=== PATIENT | male | born 1990 | race Caucasian/White ===

== ENCOUNTER 2016-12-28 00:03 | Emergency (ER) | payer BC ==
[~2016-12-28] VITALS: Ht 172.7 cm; Wt 8.2 kg
[~2016-12-28 00:03] MED LIST: AMOXIL500 MG PO; AUGMENTIN 875 M1 TAB PO; FIORICET 325 MG1 TAB PO; FLONASE0.05 MG/AC NS; MOTRIN800 MG PO; NKHM; NORCO 10-325 T1 EACH PO; ZYRTEC10 M2 PO
[2016-12-28 00:24] LABS: BASO # 0.1 10*3/uL (0.0-0.1); BASO % 1.1 % (0.0-1.0); EOS # 0.2 10*3/uL (0.0-0.4); EOS % 1.5 % (1.0-4.0); HEMATOCRIT 44.4 % (42.0-52.0); HEMOGLOBIN 15.1 g/dl (14.0-18.0); IG # 0.1 10*3/uL (0.0-0.1); LYMPH % 25.9 % (27.0-41.0); MEAN CELL VOLUME 91.5 fl (80.0-94.0); MEAN CORPUSCULAR HGB 31.1 pg (27.0-31.0); MEAN PLATELET VOLUME 8.3 fl (9.6-12.3); MONO # 0.6 10*3/uL (0.1-1.0); NEUT # 7.6 10*3/uL (2.3-7.9); NEUT % 65.8 % (47.0-73.0); PLATELET COUNT AUTOMATED 250 10*3/uL (130-400); RED BLOOD COUNT 4.85 10*6/uL (4.50-5.90); RED CELL DISTRI WIDTH 12.4 % (0-14.5); WHITE BLOOD COUNT 11.5 10*3/uL (4.8-10.8)
[2016-12-28 00:40] LABS: BUN 10 mg/dl (7-24); CARBON DIOXIDE 24 mmol/L (21-32); CHLORIDE 113 mmol/L (98-107); EST GLOM FILT AFRICAN AMERICAN > 60 ml/min; GLUCOSE 116 mg/dL (65-99); POTASSIUM 3.9 mmol/L (3.5-5.1); SODIUM 145 mmol/L (136-145)
[2016-12-28 00:42] LABS: TROPONIN I < 0.015 ng/ml (<0.045)
[2016-12-28 01:25] LABS: URINE AMPHETAMINES < 1000 (1000ng/ml); URINE BARBITURATES < 200 (200ng/ml); URINE COCAINE > 300 (300ng/ml)
== END 2016-12-28 01:42 | disposition home or self-care (01) ==
LOC: ED 00:03
PROVIDERS: Student in an Organized Health Care Education/Training Program
DX: S16.1XXA Strain of muscle, fascia and tendon at neck level, initial encounter (principal); T40.5X1A Poisoning by cocaine, accidental (unintentional), initial encounter; T40.1X1A Poisoning by heroin, accidental (unintentional), initial encounter; F10.120 Alcohol abuse with intoxication, uncomplicated; F19.10 Other psychoactive substance abuse, uncomplicated; V49.88XA Car occupant (driver) (passenger) injured in other specified transport accidents, initial encounter; Y93.89 Activity, other specified; Y92.89 Other specified places as the place of occurrence of the external cause; Y99.9 Unspecified external cause status

== ENCOUNTER → 2017-09-13 | Outpatient (CLI) | payer BC ==
[2017-09-13 16:58] LABS: BASO # 0.1 10*3/uL (0.0-0.1); BASO % 0.7 % (0.0-1.0); EOS # 0.2 10*3/uL (0.0-0.4); EOS % 1.9 % (1.0-4.0); HEMATOCRIT 40.9 % (42.0-52.0); HEMOGLOBIN 13.8 g/dl (14.0-18.0); LYMPH # 2.7 10*3/uL (1.3-4.4); LYMPH % 28.4 % (27.0-41.0); MEAN CELL VOLUME 92.1 fl (80.0-94.0); MEAN CORPUSCULAR HGB 31.1 pg (27.0-31.0); MEAN CORPUSCULAR HGB CONC 33.7 g/dl (33.0-37.0); MEAN PLATELET VOLUME 8.6 fl (9.6-12.3); MONO # 0.7 10*3/uL (0.1-1.0); MONO % 7.6 % (3.0-9.0); NEUT # 5.7 10*3/uL (2.3-7.9); NEUT % 61.2 % (47.0-73.0); PLATELET COUNT AUTOMATED 197 10*3/uL (130-400); RED BLOOD COUNT 4.44 10*6/uL (4.50-5.90); RED CELL DISTRI WIDTH 12.5 % (0-14.5); WHITE BLOOD COUNT 9.4 10*3/uL (4.8-10.8)
[2017-09-13 17:26] LABS: ALKALINE PHOSPHATASE 79 U/L (45-117); BILIRUBIN, DIRECT < 0.1 mg/dL (0.0-0.2); BUN 15 mg/dl (7-24); CHLORIDE 106 mmol/L (98-107); CREATININE 0.82 mg/dL (0.70-1.30); POTASSIUM 3.7 mmol/L (3.5-5.1); SGOT/AST 30 IU/L (3-35); SGPT/ALT 74 U/L (12-78); SODIUM 142 mmol/L (136-145); TOTAL PROTEIN 7.4 gm/dL (6.4-8.2)
[2017-09-14 08:11] LABS: HEPATITIS B SURFACE AB 006395 Reactive (.); HEPATITIS B SURFACE AG Negative (Negative)
== END | disposition home or self-care (01) ==
LOC: LAB 16:33
PROVIDERS: Nurse Practitioner Family
DX: B18.2 Chronic viral hepatitis C (principal)

== ENCOUNTER → 2017-09-28 | Outpatient (CLI) | payer BC | END | disposition home or self-care (01) | LOC: LAB 15:17 | DX: R73.9 Hyperglycemia, unspecified (principal) ==

== ENCOUNTER 2017-12-16 00:42 | Emergency (ER) | payer OTHER ==
[~2017-12-16] VITALS: Ht 170.1 cm; Wt 54.4 kg
[2017-12-16 01:22] LABS: HEMATOCRIT 43.8 % (42.0-52.0); HEMOGLOBIN 15.2 g/dl (14.0-18.0); MEAN CELL VOLUME 89.9 fl (80.0-94.0); MEAN CORPUSCULAR HGB 31.2 pg (27.0-31.0); MEAN CORPUSCULAR HGB CONC 34.7 g/dl (33.0-37.0); MEAN PLATELET VOLUME 8.7 fl (9.6-12.3); PLATELET COUNT AUTOMATED 247 10*3/uL (130-400); RED BLOOD COUNT 4.87 10*6/uL (4.50-5.90); RED CELL DISTRI WIDTH 12.8 % (0-14.5); WHITE BLOOD COUNT 26.5 10*3/uL (4.8-10.8)
[2017-12-16 01:40] LABS: ALBUMIN 4.5 gm/dl (3.1-4.5); ALKALINE PHOSPHATASE 87 U/L (45-117); BUN 9 mg/dl (7-24); CHLORIDE 105 mmol/L (98-107); CREATININE 0.91 mg/dL (0.70-1.30); POTASSIUM 3.5 mmol/L (3.5-5.1); SGOT/AST 18 IU/L (3-35); SGPT/ALT 22 U/L (12-78); SODIUM 141 mmol/L (136-145); T3 UPTAKE 37 % (31-39); TOTAL PROTEIN 8.4 gm/dL (6.4-8.2)
[2017-12-16 01:41] LABS: FREE T4 1.37 ng/dl (0.76-1.46)
[2017-12-16 01:43] LABS: BASOPHILS 1 % (0-1); PLATELET SUFFICIENCY NORMAL (NORMAL); TOTAL CELLS COUNTED 100 #CELLS
== END 2017-12-16 03:02 | disposition left against medical advice (07) ==
LOC: ED 00:42
PROVIDERS: Emergency Medicine
DX: D72.829 Elevated white blood cell count, unspecified (principal); R74.0 Nonspecific elevation of levels of transaminase and lactic acid dehydrogenase [LDH]; F14.10 Cocaine abuse, uncomplicated

== ENCOUNTER 2018-06-15 11:24 | Emergency (ER) | payer OTHER ==
[~2018-06-15] VITALS: Ht 170.1 cm; Wt 54.4 kg
== END 2018-06-15 12:27 | disposition home or self-care (01) ==
LOC: ED 11:24
DX: M79.601 Pain in right arm (principal); R03.0 Elevated blood-pressure reading, without diagnosis of hypertension

== ENCOUNTER 2018-07-20 06:06 | Emergency (ER) | payer OTHER ==
[~2018-07-20] VITALS: Ht 170.1 cm; Wt 54.4 kg
--- NOTE | ~2018-07-20 | EKG ---
[place], [place] ELECTROCARDIOGRAM REPORT NAME: ANJALI VELAZQUEZ UNIT #: [id number] ROOM: DOCTOR: EPIPHANY DRAFT REPORT BIRTHDATE: [birth year] [facility] Test Date: 2018-07-20 Test Time: 07:20:11 Pat Name: ANJALI VELAZQUEZ Department: Room: Gender: Meteorologist Liaison: BO : 1990 Requested By: CHANNING BOYD Order Number: [id number] Reading MD: Measurements Intervals [place] Rate: 82 P: 94 [place]: 146 QRS: -11 QRSD: 98 T: 62 QT: 379 QTc: 443 Interpretive Statements Sinus rhythm No previous ECG available for comparison CM:EKGRPT:ELECTROCARDIOGRAM REPORT [id number] CHANNING BOYD MD EPIPHANY DRAFT REPORT CHANNING BOYD MD
--- NOTE | ~2018-07-20 | EKG ---
[place], [place] ELECTROCARDIOGRAM REPORT NAME: ANJALI VELAZQUEZ UNIT #: [id number] ROOM: DOCTOR: EPIPHANY DRAFT REPORT BIRTHDATE: [birth year] [facility] Test Date: 2018-07-20 Test Time: 06:57:47 Pat Name: ANJALI VELAZQUEZ Department: Room: Gender: Goodwill Ambassador: BO : 1990 Requested By: CHANNING BOYD Order Number: [id number] Reading MD: Measurements Intervals [place] Rate: 92 P: 76 SC: 148 QRS: -15 QRSD: 95 T: 54 QT: 371 QTc: 459 Interpretive Statements Sinus rhythm Borderline left axis deviation No previous ECG available for comparison CM:EKGRPT:ELECTROCARDIOGRAM REPORT [id number] CHANNING MTZ DRAFT REPORT CHANNING BOYD MD
--- NOTE | ~2018-07-20 | EKG ---
[place], [place] ELECTROCARDIOGRAM REPORT NAME: ANJALI VELAZQUEZ UNIT #: [id number] ROOM: DOCTOR: EPIPHANY DRAFT REPORT BIRTHDATE: [birth year] [facility] Test Date: 2018-07-20 Test Time: 06:44:09 Pat Name: ANJALI VELAZQUEZ Department: Room: Gender: Corporate Specialist: BO : 1990 Requested By: CHANNING BOYD Order Number: [id number] Reading MD: Measurements Intervals [place] Rate: 93 P: 75 [place]: 155 QRS: -2 QRSD: 98 T: 58 QT: 397 QTc: 494 Interpretive Statements Sinus rhythm RSR' in V1 or V2, probably normal variant Prolonged QT interval No previous ECG available for comparison CM:EKGRPT:ELECTROCARDIOGRAM REPORT [id number] CHANNING MTZ DRAFT REPORT CHANNING BOYD MD
[2018-07-20 07:00] LABS: BASO # 0.1 10*3/uL (0.0-0.1); BASO % 0.6 % (0.0-1.0); EOS # 0.1 10*3/uL (0.0-0.4); EOS % 0.6 % (1.0-4.0); HEMATOCRIT 44.2 % (42.0-52.0); HEMOGLOBIN 15.4 g/dl (14.0-18.0); LYMPH # 2.1 10*3/uL (1.3-4.4); LYMPH % 16.6 % (27.0-41.0); MEAN CELL VOLUME 89.7 fl (80.0-94.0); MEAN CORPUSCULAR HGB 31.2 pg (27.0-31.0); MEAN CORPUSCULAR HGB CONC 34.8 g/dl (33.0-37.0); MEAN PLATELET VOLUME 8.6 fl (9.6-12.3); MONO # 0.9 10*3/uL (0.1-1.0); MONO % 7.2 % (3.0-9.0); NEUT # 9.3 10*3/uL (2.3-7.9); NEUT % 74.8 % (47.0-73.0); PLATELET COUNT AUTOMATED 237 10*3/uL (130-400); RED BLOOD COUNT 4.93 10*6/uL (4.50-5.90); RED CELL DISTRI WIDTH 12.3 % (0-14.5); WHITE BLOOD COUNT 12.4 10*3/uL (4.8-10.8)
[2018-07-20 07:09] LABS: ACT PARTIAL THROMBO TIME 22.1 SECONDS (20.8-31.5)
[2018-07-20 07:15] LABS: ALBUMIN 4.4 gm/dl (3.1-4.5); ALKALINE PHOSPHATASE 101 U/L (45-117); BUN 15 mg/dl (7-24); CHLORIDE 105 mmol/L (98-107); LIPASE 73 U/L (73-393); POTASSIUM 3.5 mmol/L (3.5-5.1); SGOT/AST 9 IU/L (3-35); SGPT/ALT 20 U/L (12-78); SODIUM 138 mmol/L (136-145); TOTAL PROTEIN 8.5 gm/dL (6.4-8.2)
[2018-07-20 07:19] LABS: TROPONIN I < 0.015 ng/ml (<0.045)
[2018-07-20 09:09] LABS: URINE AMPHETAMINES > 1000 (1000ng/ml); URINE BARBITURATES < 200 (200ng/ml); URINE BENZODIAZEPINES > 200 (200ng/ml); URINE CANNABINOIDS (THC) > 50 (50ng/ml); URINE COCAINE < 300 (300ng/ml); URINE METHADONE < 300 (300ng/ml); URINE OPIATES < 300 (300ng/ml); URINE PHENCYCLIDINE < 25 (25ng/ml)
[2018-07-20] MEDS ORDERED: POLYSPORIN OI28.3 GM T (18:40)
== END 2018-07-20 10:37 | disposition home or self-care (01) ==
LOC: ED 06:06
PROVIDERS: Emergency Medicine Emergency Medical Services
DX: S50.12XA Contusion of left forearm, initial encounter (principal); F19.10 Other psychoactive substance abuse, uncomplicated; F15.10 Other stimulant abuse, uncomplicated; F14.10 Cocaine abuse, uncomplicated; R07.9 Chest pain, unspecified; F17.200 Nicotine dependence, unspecified, uncomplicated; W26.8XXA Contact with other sharp object(s), not elsewhere classified, initial encounter; Y93.89 Activity, other specified; Y92.89 Other specified places as the place of occurrence of the external cause; Y99.8 Other external cause status

== ENCOUNTER 2018-07-20 15:50 | Emergency (ER) | payer OTHER ==
[~2018-07-20] VITALS: Ht 170.1 cm; Wt 54.4 kg
--- NOTE | ~2018-07-20 | EKG ---
[place], [place] ELECTROCARDIOGRAM REPORT NAME: ANJALI VELAZQUEZ UNIT #: [id number] ROOM: DOCTOR: EPIPHANY DRAFT REPORT BIRTHDATE: [birth year] [facility] Test Date: 2018-07-20 Test Time: 15:54:20 Pat Name: ANJALI VELAZQUEZ Department: ER Room: 3 Gender: M Licensed Final Expense Agents: Abraham Arnett : 1990 Requested By: YAQUELIN MEDINA Order Number: [id number] Reading MD: Jayy Pereira MD Measurements Intervals [place] Rate: 82 P: 67 [place]: 140 QRS: -24 QRSD: 94 T: 45 QT: 379 QTc: 443 Interpretive Statements Sinus rhythm Borderline left axis deviation RSR' in V1 or V2, probably normal variant Electronically Signed On 07-22-2018 8:10:09 PST by Jayy Pereira MD CM:EKGRPT:ELECTROCARDIOGRAM REPORT [id number] YAQUELIN MEDINA MD EPIPHPAMELA DRAFT REPORT YAQUELIN MEDINA MD
[2018-07-20 16:18] LABS: BASO # 0.1 10*3/uL (0.0-0.1); BASO % 0.5 % (0.0-1.0); EOS # 0.1 10*3/uL (0.0-0.4); EOS % 1.1 % (1.0-4.0); HEMOGLOBIN 15.8 g/dl (14.0-18.0); LYMPH # 2.7 10*3/uL (1.3-4.4); LYMPH % 20.5 % (27.0-41.0); MEAN CELL VOLUME 88.8 fl (80.0-94.0); MEAN CORPUSCULAR HGB 31.2 pg (27.0-31.0); MEAN CORPUSCULAR HGB CONC 35.1 g/dl (33.0-37.0); MEAN PLATELET VOLUME 8.7 fl (9.6-12.3); MONO # 0.9 10*3/uL (0.1-1.0); NEUT # 9.3 10*3/uL (2.3-7.9); NEUT % 70.7 % (47.0-73.0); PLATELET COUNT AUTOMATED 240 10*3/uL (130-400); RED BLOOD COUNT 5.07 10*6/uL (4.50-5.90); RED CELL DISTRI WIDTH 12.1 % (0-14.5); WHITE BLOOD COUNT 13.2 10*3/uL (4.8-10.8)
[2018-07-20 16:36] LABS: ALBUMIN 4.3 gm/dl (3.1-4.5); ALKALINE PHOSPHATASE 101 U/L (45-117); BUN 12 mg/dl (7-24); CHLORIDE 107 mmol/L (98-107); CREATININE 0.84 mg/dL (0.70-1.30); POTASSIUM 3.6 mmol/L (3.5-5.1); SGOT/AST 18 IU/L (3-35); SGPT/ALT 18 U/L (12-78); SODIUM 139 mmol/L (136-145); TOTAL PROTEIN 8.3 gm/dL (6.4-8.2)
[2018-07-20 16:37] LABS: TROPONIN I < 0.015 ng/ml (<0.045)
[2018-07-20] MEDS ORDERED: POLYSPORIN OI28.3 GM T (18:40)
== END 2018-07-20 18:44 | disposition home or self-care (01) ==
LOC: ED 15:50
PROVIDERS: Emergency Medicine
DX: R07.9 Chest pain, unspecified (principal); F15.10 Other stimulant abuse, uncomplicated; F19.10 Other psychoactive substance abuse, uncomplicated; F17.200 Nicotine dependence, unspecified, uncomplicated; F10.10 Alcohol abuse, uncomplicated

== ENCOUNTER 2018-07-21 21:13 | Emergency (ER) | payer OTHER ==
[~2018-07-21] VITALS: Ht 170.1 cm; Wt 54.4 kg
--- NOTE | ~2018-07-21 | EKG ---
[place], [place] ELECTROCARDIOGRAM REPORT NAME: ANJALI VELAZQUEZ UNIT #: [id number] ROOM: DOCTOR: EPIPHANY DRAFT REPORT BIRTHDATE: [birth year] [facility] Test Date: 2018-07-21 Test Time: 21:27:21 Pat Name: ANJALI VELAZQUEZ Department: Room: Gender: Belt Cutter: EKG.VT : 1990 Requested By: MAXI ABRAHAM PA-C Order Number: [id number] Reading MD: Measurements Intervals [place] Rate: 58 P: 35 FL: 135 QRS: 45 QRSD: 96 T: 61 QT: 422 QTc: 415 Interpretive Statements Sinus rhythm No previous ECG available for comparison CM:EKGRPT:ELECTROCARDIOGRAM REPORT [id number] MAXI MTZ DRAFT REPORT MAXI ABRAHAM PA-C
[~2018-07-21 21:13] MED LIST changes: +POLYSPORIN OI28.3 GM T
[2018-07-21 22:05] LABS: BASO # 0.1 10*3/uL (0.0-0.1); BASO % 0.6 % (0.0-1.0); EOS # 0.2 10*3/uL (0.0-0.4); EOS % 1.4 % (1.0-4.0); HEMATOCRIT 41.7 % (42.0-52.0); HEMOGLOBIN 14.2 g/dl (14.0-18.0); LYMPH # 2.4 10*3/uL (1.3-4.4); LYMPH % 21.2 % (27.0-41.0); MEAN CELL VOLUME 91.2 fl (80.0-94.0); MEAN CORPUSCULAR HGB 31.1 pg (27.0-31.0); MEAN CORPUSCULAR HGB CONC 34.1 g/dl (33.0-37.0); MEAN PLATELET VOLUME 8.8 fl (9.6-12.3); MONO # 0.8 10*3/uL (0.1-1.0); MONO % 7.1 % (3.0-9.0); NEUT # 7.8 10*3/uL (2.3-7.9); NEUT % 69.3 % (47.0-73.0); PLATELET COUNT AUTOMATED 207 10*3/uL (130-400); RED BLOOD COUNT 4.57 10*6/uL (4.50-5.90); RED CELL DISTRI WIDTH 12.3 % (0-14.5); WHITE BLOOD COUNT 11.3 10*3/uL (4.8-10.8)
[2018-07-21 22:12] LABS: INTERNATIONAL NORM RATIO 0.9 (2.0-3.5)
[2018-07-21 22:19] LABS: BILIRUBIN NEGATIVE (NEGATIVE); BLOOD NEGATIVE (NEGATIVE); CLARITY SL CLOUDY (CLEAR); COLOR YELLOW (YELLOW); GLUCOSE NEGATIVE (NEGATIVE); KETONE NEGATIVE (NEGATIVE); LEUKO ESTERASE NEGATIVE (NEGATIVE); NITRITE NEGATIVE (NEGATIVE); PH 7.5 (5.0-9.0); UROBILINOGEN 0.2 E.U./dl (0.2-1.0)
[2018-07-21 22:25] LABS: ALBUMIN 3.6 gm/dl (3.1-4.5); ALKALINE PHOSPHATASE 85 U/L (45-117); BUN 20 mg/dl (7-24); CHLORIDE 106 mmol/L (98-107); CREATININE 0.75 mg/dL (0.70-1.30); POTASSIUM 3.9 mmol/L (3.5-5.1); SGOT/AST 8 IU/L (3-35); SGPT/ALT 16 U/L (12-78); SODIUM 136 mmol/L (136-145); TOTAL PROTEIN 7.2 gm/dL (6.4-8.2)
[2018-07-21 22:27] LABS: TROPONIN I < 0.015 ng/ml (<0.045)
[2018-07-21 22:30] LABS: RBC 0-2 rbc/hpf (0-2); WBC 0-2 wbc/hpf (0-5)
[2018-07-21 22:36] LABS: URINE AMPHETAMINES > 1000 (1000ng/ml); URINE BARBITURATES < 200 (200ng/ml); URINE BENZODIAZEPINES < 200 (200ng/ml); URINE CANNABINOIDS (THC) > 50 (50ng/ml); URINE COCAINE < 300 (300ng/ml); URINE METHADONE < 300 (300ng/ml); URINE OPIATES < 300 (300ng/ml)
[2018-07-21 22:41] LABS: URINE PHENCYCLIDINE < 25 (25ng/ml)
== END 2018-07-21 23:12 | disposition home or self-care (01) ==
LOC: ED 21:13
PROVIDERS: Physician Assistant
DX: F15.10 Other stimulant abuse, uncomplicated (principal); F41.9 Anxiety disorder, unspecified; R42 Dizziness and giddiness; R51 Headache; R63.0 Anorexia; R00.2 Palpitations; R10.9 Unspecified abdominal pain; F17.200 Nicotine dependence, unspecified, uncomplicated

== ENCOUNTER → 2018-08-30 | Outpatient (CLI) | payer OTHER ==
[2018-08-30 15:18] LABS: BASO # 0.1 10*3/uL (0.0-0.1); BASO % 0.6 % (0.0-1.0); EOS % 0.3 % (1.0-4.0); HEMATOCRIT 48.6 % (42.0-52.0); HEMOGLOBIN 15.9 g/dl (14.0-18.0); LYMPH # 2.2 10*3/uL (1.3-4.4); LYMPH % 19.6 % (27.0-41.0); MEAN CELL VOLUME 93.1 fl (80.0-94.0); MEAN CORPUSCULAR HGB 30.5 pg (27.0-31.0); MEAN CORPUSCULAR HGB CONC 32.7 g/dl (33.0-37.0); MEAN PLATELET VOLUME 9.1 fl (9.6-12.3); MONO # 0.7 10*3/uL (0.1-1.0); NEUT # 8.1 10*3/uL (2.3-7.9); NEUT % 73.1 % (47.0-73.0); PLATELET COUNT AUTOMATED 167 10*3/uL (130-400); RED BLOOD COUNT 5.22 10*6/uL (4.50-5.90); RED CELL DISTRI WIDTH 12.8 % (0-14.5)
[2018-08-30 15:25] LABS: ALBUMIN 4.8 gm/dl (3.1-4.5); ALKALINE PHOSPHATASE 80 U/L (45-117); BUN 10 mg/dl (7-24); CHLORIDE 106 mmol/L (98-107); CREATININE 0.93 mg/dL (0.70-1.30); POTASSIUM 3.6 mmol/L (3.5-5.1); SGOT/AST 13 IU/L (3-35); SGPT/ALT 22 U/L (12-78); SODIUM 140 mmol/L (136-145); TOTAL PROTEIN 8.1 gm/dL (6.4-8.2)
[2018-08-30 15:33] LABS: THYROID STIM HORMONE (HS) 0.536 uIU/ml (0.358-4.75)
[2018-08-31 20:07] LABS: HEPATITIS C QUANTITATION HCV Not Detected IU/mL (.)
== END | disposition home or self-care (01) ==
LOC: LAB 14:47
PROVIDERS: Internal Medicine Gastroenterology; Nurse Practitioner Family
DX: I73.00 Raynaud's syndrome without gangrene (principal); B18.2 Chronic viral hepatitis C; R07.9 Chest pain, unspecified; R00.2 Palpitations

== ENCOUNTER → 2019-04-03 | Outpatient (CLI) | payer OTHER | END | disposition home or self-care (01) | LOC: CARD 12:38 | DX: R07.89 Other chest pain (principal) ==

== ENCOUNTER 2019-06-05 11:58 | Emergency (ER) | payer OTHER ==
[~2019-06-05] VITALS: Ht 170.1 cm; Wt 54.4 kg
[2019-06-05] MEDS ORDERED: Tobrex Ophth S2.5 ML OPH (12:13)
[2019-06-05] MEDS ORDERED: SEPTDS PO (12:13)
== END 2019-06-05 12:29 | disposition home or self-care (01) ==
LOC: ED 11:58
DX: H10.9 Unspecified conjunctivitis (principal); L03.213 Periorbital cellulitis

== ENCOUNTER 2019-11-07 14:34 | Inpatient (IN) | payer OTHER ==
[~2019-11-07] VITALS: Ht 177.8 cm; Wt 55.1 kg
[~2019-11-07 14:34] MED LIST changes: +SEPTDS PO; +Tobrex Ophth S2.5 ML OPH
[2019-11-07 14:36] VITALS: BP 126/78
--- NOTE | 2019-11-07 14:47 | NUR ---
POISON CONTROL NOTIFIED, THEY SUGGEST TOX SCREENS, ETOH,EKG BASELINE BUT DON'T EXPECT CHANGES, "REMERON IS ASSCOIATED WITH MILD CLINICAL SYMPTOMS OF DROWSINESS, TACHYCARDIA, HYPOTENSION, NAUSEA, HEADACHE, TREMORS." THEY SUGGEST 6-8 MONITORING IF IT WAS ONLY REMERON HE INGESTED BUT WITY[facility] PT'S HX OF POLYDRUG ABUSE THEY ASSUME OF DRUGS ON BOARD.
[2019-11-07 14:57] LABS: BASO % 0.4 % (0.0-1.0); EOS % 0.3 % (1.0-4.0); HEMATOCRIT 41.8 % (42.0-52.0); HEMOGLOBIN 14.1 g/dl (14.0-18.0); LYMPH % 8.4 % (27.0-41.0); MEAN CELL VOLUME 90.7 fl (80.0-94.0); MEAN CORPUSCULAR HGB 30.6 pg (27.0-31.0); MEAN CORPUSCULAR HGB CONC 33.7 g/dl (33.0-37.0); MEAN PLATELET VOLUME 8.9 fl (9.6-12.3); MONO # 0.5 10*3/uL (0.1-1.0); MONO % 4.3 % (3.0-9.0); NEUT # 9.8 10*3/uL (2.3-7.9); NEUT % 86.2 % (47.0-73.0); PLATELET COUNT AUTOMATED 160 10*3/uL (130-400); RED BLOOD COUNT 4.61 10*6/uL (4.50-5.90); WHITE BLOOD COUNT 11.4 10*3/uL (4.8-10.8)
[2019-11-07 15:05] VITALS: BP 132/68
[2019-11-07 15:08] LABS: ACT PARTIAL THROMBO TIME 25.4 SECONDS (20.0-32.1)
[2019-11-07 15:11] LABS: ACETAMINOPHEN (TYLENOL) < 5.0 ug/ml (10-30); ALBUMIN 3.7 gm/dl (3.1-4.5); ALKALINE PHOSPHATASE 74 U/L (45-117); BUN 16 mg/dl (7-24); CHLORIDE 108 mmol/L (98-107); ETHYL ALCOHOL < 3.0 mg/dl (<3); LIPASE 51 U/L (73-393); POTASSIUM 3.5 mmol/L (3.5-5.1); SGOT/AST 8 IU/L (3-35); SGPT/ALT 17 U/L (12-78); SODIUM 140 mmol/L (136-145); TOTAL PROTEIN 6.9 gm/dL (6.4-8.2); TROPONIN I < 0.015 ng/ml (<0.045)
[2019-11-07 15:44] LABS: BILIRUBIN 1+ (NEGATIVE); BLOOD NEGATIVE (NEGATIVE); CLARITY SL CLOUDY (CLEAR); COLOR YELLOW (YELLOW); GLUCOSE NEGATIVE (NEGATIVE); KETONE TRACE (NEGATIVE); LEUKO ESTERASE NEGATIVE (NEGATIVE); NITRITE NEGATIVE (NEGATIVE); PH 7.5 (5.0-9.0); SPECIFIC GRAVITY 1.005 (1.005-1.030); UROBILINOGEN 0.2 E.U./dl (0.2-1.0)
[2019-11-07 15:50] LABS: BACTERIA 2+; MUCOUS TRACE; RBC 0-2 rbc/hpf (0-2); URINE AMPHETAMINES < 1000 (1000ng/ml); URINE BARBITURATES < 200 (200ng/ml); URINE BENZODIAZEPINES < 200 (200ng/ml); URINE CANNABINOIDS (THC) < 50 (50ng/ml); URINE COCAINE < 300 (300ng/ml); URINE METHADONE < 300 (300ng/ml); URINE OPIATES < 300 (300ng/ml); WBC TNTC wbc/hpf (0-5)
[2019-11-07 15:51] LABS: URINE PHENCYCLIDINE < 25 (25ng/ml)
[2019-11-07 16:00] VITALS: BP 151/66
--- NOTE | 2019-11-07 16:00 | NUR ---
A 29, admitted to ICCU, under the services of TIP Braden DO with a diagnosis of DRUG OVERDOSE. Chief complaint is found by family, lethargic, thrashes about, speech garbled. Patient arrived via stretcher from ER. Monitor applied. Initial assessment completed. Vital signs taken and recorded. TIP BRADEN DO notified of admission to the unit. Orders received. See assessment for past medical history, medications and allergies. Patient and/or family oriented to unit. [facility]U visitation policy reviewed. Clothing/patient valuable form completed. KELSI MCLEOD
--- NOTE | 2019-11-07 17:33 | NUR ---
DINNER ORDERED, PT REMAINS RESTLESS, THRASHES ALL OVER, BILAT SOFT WRIST RESTRAINTS ON TO PREVENT PT INJURY AND PT FROM PULLING OUT HUNT/IV BHU HAS BEEN CONSULTED
--- NOTE | 2019-11-07 17:47 | NUR ---
UNABLE TO DO EKG TIMES TWO ATTEMPTS DUE TO PT. CONDITION.
--- NOTE | 2019-11-07 18:14 | NUR ---
IV ATIVAN ADVISED BY POISON CONTROL IS SLIGHTLY EFFECTIVE
--- NOTE | 2019-11-07 18:36 | NUR ---
HAD A FEW BITES FOR DINNER
--- NOTE | 2019-11-07 19:53 | NUR ---
Patient somewhat restless, does yell out at times. Swings legs over the side of the bed and kicks at it. Patient pulls at restraints.
--- NOTE | 2019-11-07 19:55 | NUR ---
Spoke with Dr. Gilbert with concerns of patients agitation and restlessness. New order received for ativan.
[2019-11-07 20:01] VITALS: BP 130/80
--- NOTE | 2019-11-07 20:11 | NUR ---
Ativan given for agitation and restlessness. Will monitor and reassess.
--- NOTE | 2019-11-07 21:01 | NUR ---
Updated poison control with patients vitals and agitation. They recommend ativan 1-2mg every 5-10mins to decrease agitation and restlessness.
--- NOTE | 2019-11-07 22:10 | NUR ---
Patient given ativan for agitation, patient yelling out, unable to understand. Thrashing about in bed. Will monitor.
--- NOTE | 2019-11-07 23:32 | NUR ---
Patient still showing agitation, thrashing about in bed, pulling at restraints. Ativan not effective at this time.
[2019-11-08] VITALS: BP 139/78
--- NOTE | 2019-11-08 00:05 | NUR ---
Patient given another dose of ativan to help with agitation, patient kicking at staff, yelling, thrashing about.
--- NOTE | 2019-11-08 00:15 | NUR ---
Updated Dr. Gilbert on patient being restless, kicking at staff, yelling. Ativan not effective. Recommended to call poison control again for any additional orders.
--- NOTE | 2019-11-08 00:32 | NUR ---
Talked to poison control for futher treatment, they recommend ativan 1-2mg every 5-10 mins or versed, or the physicians can contact their toxicology docs for futher recommendations.
--- NOTE | 2019-11-08 00:40 | NUR ---
Updated Dr. Gilbert on recommendations from poison control. Awaiting new orders.
--- NOTE | 2019-11-08 00:49 | NUR ---
Patient throwing legs over side of the rail, rearing up out of bed, pulling at restraints. Ativan given. Will monitor and reassess.
--- NOTE | 2019-11-08 02:05 | NUR ---
Patient again restless, agitated, pulling at restraints, yelling out. Ativan given, Will monitor and reassess.
--- NOTE | 2019-11-08 02:30 | NUR ---
Patient resting, with no signs of distress.
--- NOTE | 2019-11-08 03:47 | NUR ---
Patient becoming restless, agitated. Ativan given. will monitor and reassess.
[2019-11-08 04:00] VITALS: BP 130/78
--- NOTE | 2019-11-08 05:20 | NUR ---
Ativan given again for agitation, restlessness. Effective for a short time. Will monitor.
[2019-11-08 06:05] LABS: BASO # 0.1 10*3/uL (0.0-0.1); BASO % 0.7 % (0.0-1.0); EOS # 0.2 10*3/uL (0.0-0.4); EOS % 2.3 % (1.0-4.0); HEMATOCRIT 41.8 % (42.0-52.0); HEMOGLOBIN 13.6 g/dl (14.0-18.0); LYMPH # 2.4 10*3/uL (1.3-4.4); LYMPH % 33.4 % (27.0-41.0); MEAN CELL VOLUME 91.1 fl (80.0-94.0); MEAN CORPUSCULAR HGB 29.6 pg (27.0-31.0); MEAN CORPUSCULAR HGB CONC 32.5 g/dl (33.0-37.0); MEAN PLATELET VOLUME 9.3 fl (9.6-12.3); MONO # 0.5 10*3/uL (0.1-1.0); MONO % 7.5 % (3.0-9.0); NEUT # 3.9 10*3/uL (2.3-7.9); NEUT % 55.7 % (47.0-73.0); PLATELET COUNT AUTOMATED 165 10*3/uL (130-400); RED BLOOD COUNT 4.59 10*6/uL (4.50-5.90); RED CELL DISTRI WIDTH 12.9 % (0-14.5)
--- NOTE | 2019-11-08 06:09 | NUR ---
Patient resting with no signs of distress.
[2019-11-08 06:11] LABS: ALBUMIN 3.5 gm/dl (3.1-4.5); ALKALINE PHOSPHATASE 75 U/L (45-117); BUN 10 mg/dl (7-24); CHLORIDE 112 mmol/L (98-107); CHOLESTEROL 133 mg/dL (<200); CREATININE 0.81 mg/dL (0.70-1.30); HDL CHOLESTEROL 39 mg/dl (40-60); LDL CHOLESTEROL 80 mg/dL (9-159); PHOSPHOROUS 2.9 mg/dL (2.5-4.9); POTASSIUM 4.2 mmol/L (3.5-5.1); SGOT/AST 10 IU/L (3-35); SGPT/ALT 15 U/L (12-78); SODIUM 141 mmol/L (136-145); TOTAL PROTEIN 6.7 gm/dL (6.4-8.2); TRIGLYCERIDES 72 mg/dl (<150); VLDL CHOLESTEROL 14 mg/dL (6-40)
[2019-11-08 06:16] LABS: THYROID STIM HORMONE (HS) 0.245 uIU/ml (0.358-4.75)
--- NOTE | 2019-11-08 07:18 | NUR ---
ATIVAN GIVEN IVP PER ORDER FOR RESTLESSNESS
[2019-11-08 08:00] VITALS: BP 112/68
--- NOTE | 2019-11-08 08:15 | NUR ---
PT RESTING ON BED AT THIS TIME. ATIVAN 2MG GIVEN AND EFFECTIVE. RESPIRATIONS EASY AND NON LABORED. HUNT CATHETER DRAINING ARPITA URINE. RN UNABLE TO UNDERSTAND VERBAL WORDS. PT AROUSABLE TO VOICE. RN TO CONTINUE TO MONITOR
--- NOTE | 2019-11-08 08:44 | NUR ---
MESSAGE LEFT ON KIRSTIN [facility] SoftwareARCH[facility] ANSWERING MACHINE TO MAKE HER AWARE OF NEW CONSULT ORDER.
--- NOTE | 2019-11-08 09:09 | NUR ---
PT GIVEN ATIVAN 2MG PER ORDER FOR RESTLESSNESS.
--- NOTE | 2019-11-08 09:30 | NUR ---
PT RESTING QUIELTY AT THIS TIME. NO DISTRESS OR ABNORMAL BEHAVIOR NOTED.
[2019-11-08 12:00] VITALS: BP 101/53
--- NOTE | 2019-11-08 12:00 | NUR ---
PT RESTING ON BED WITH EASY RESPIRATIONS. PT BECOMING MORE ALERT AT THIS TIME. ABLE TO ANSWER SIMPLE QUESTIONS. ABLE TO UNDERSTAND SPOKEN WORDS BETTER. PT DOES NOT RECALL WHY HE WAS ADMITTED. ABLE TO CONFIRM PERSON, PLACE AND TIME. RN TO CONTINUE TO MONITOR.
--- NOTE | 2019-11-08 13:32 | NUR ---
PER SUGGESTION OF POISON CONTROL, REPEAT EKG COMPLETED.
--- NOTE | 2019-11-08 14:37 | NUR ---
PT RESTING QUIETLY. NO DISTRESS AT THIS TIME. CALM AND COOPERATIVE.
--- NOTE | 2019-11-08 15:45 | NUR ---
RESTING IN BED. DROWSY. ADMITS TO SNORTING METH AND OPIATES. VITALS STABLE. PULSE OX 96% ON ROOM AIR. LUNGS CLEAR BILATERALLY. NO EDEMA NOTED. NS INFUSING VIA LUIS AT 100CC/HR. HUNT DRAINING DARK TEA COLOR URINE
[2019-11-08 16:00] VITALS: BP 95/73
--- NOTE | 2019-11-08 19:20 | NUR ---
MEDICATED WITH ATIVAN IV ORDERED FOR COMPLAINTS OF ANXIETY
[2019-11-08 20:00] VITALS: BP 116/73
--- NOTE | 2019-11-08 20:26 | NUR ---
1999 RESTING IN BED WATCHING TV. EARLIER ATIVAN SL EFFECTIVE. AUNT BROUGHT PT PIZZA UP TO EAT DUE TO PT C/O FEELING "HUNGRY'. IV FLUIDS CONT. HUNT PATENT AND DRAINING TEA COLORED URINE. NO DISTRESS NOTED. BED ALARM INTACT.
--- NOTE | 2019-11-08 22:20 | NUR ---
RESTING IN BED WITH EYES CLOSED. APPEARS TO BE SLEEPING.
[2019-11-09] VITALS: BP 111/82
--- NOTE | 2019-11-09 00:13 | NUR ---
REMAINS SLEEPING WITHOUT DISTRESS. IV FLUIDS CONT.
[2019-11-09 04:00] VITALS: BP 107/57
[2019-11-09 06:07] LABS: BASO # 0.1 10*3/uL (0.0-0.1); BASO % 1.3 % (0.0-1.0); EOS # 0.2 10*3/uL (0.0-0.4); EOS % 3.4 % (1.0-4.0); HEMATOCRIT 38.2 % (42.0-52.0); HEMOGLOBIN 12.7 g/dl (14.0-18.0); LYMPH # 2.1 10*3/uL (1.3-4.4); LYMPH % 31.2 % (27.0-41.0); MEAN CELL VOLUME 92.5 fl (80.0-94.0); MEAN CORPUSCULAR HGB 30.8 pg (27.0-31.0); MEAN CORPUSCULAR HGB CONC 33.2 g/dl (33.0-37.0); MEAN PLATELET VOLUME 9.6 fl (9.6-12.3); MONO # 0.6 10*3/uL (0.1-1.0); MONO % 8.6 % (3.0-9.0); NEUT # 3.8 10*3/uL (2.3-7.9); NEUT % 55.2 % (47.0-73.0); PLATELET COUNT AUTOMATED 171 10*3/uL (130-400); RED BLOOD COUNT 4.13 10*6/uL (4.50-5.90); WHITE BLOOD COUNT 6.9 10*3/uL (4.8-10.8)
--- NOTE | 2019-11-09 06:11 | NUR ---
SLEPT WELL THIS SHIFT. IV FLUIDS CONT. HUNT PATENT. NO DISTRESS NOTED. CONDIITION GUARDED.
[2019-11-09 06:19] LABS: BUN 19 mg/dl (7-24); CHLORIDE 113 mmol/L (98-107); CREATININE 0.68 mg/dL (0.70-1.30); POTASSIUM 4.3 mmol/L (3.5-5.1); SODIUM 140 mmol/L (136-145)
[2019-11-09 07:24] VITALS: BP 85/39
--- NOTE | 2019-11-09 08:00 | NUR ---
[facility] CALLED AND SINCE PT IS SLEEPY THEY WILL BE UNABLE TO TALK WITH HIM VIA FACETIME WILL TRY AGAIN TOMORROW
--- NOTE | 2019-11-09 09:35 | NUR ---
psychiatric assessment: met with client , he is able to be awakened and interviewed, he is sleepy, however, he reports to me that he has been depressed for years, he has several other suicide attempts and was last at [facility] for cutting his neck, he admits to me that this was a suicide attempt and he feels depressed and continues to have suicidal thoughts. he reports that he has no support system and he does abuse substances, although it appears his drug screen was negative. he recieves mental health care through [email or web address], in [place] and that is who prescribes his psych medications. Because this client has previous attempts and a lengthy psychiatric hx, and continues to voice suicidal thoughts, i would recommend an inpatient psychiatric admission for stablization, possibly a dual unit that can address both issues. he is listed with ins, however he thinks he is a self pay so perhaps his ins will run out at the end of october. i will seek a bed once he is medically stable and if that is what the doctor recommends. i asked the nurse to contact me.
--- NOTE | 2019-11-09 10:09 | NUR ---
DR CALDERA HERE AND DEEMS PT MEDICALLY STABLE NOW
[2019-11-09 11:50] VITALS: BP 100/64
--- NOTE | 2019-11-09 14:28 | NUR ---
made referral to [facility] for client, asking them to consider the dual unit, faxed them all the information, i also had to fill out a covid questionaire for client, faxed that, recieved a call from [facility] and they need the pink slip, [facility] and helped to [facility] that out, signed by the resident, faxed it to [facility], client will be accepted there to their dual unit, under dr grijalva. his diagnosis : major depression, severe, recurrent. client also has axis II diagnosis for substance abuse. gave the dc information to his nurse, she will do the nurse to nurse and then he can be sent by ambulance with the original pink slip.
--- NOTE | 2019-11-09 14:51 | NUR ---
REPORT TO GENERATIONS FAMILY NOTIFIED
--- NOTE | 2019-11-09 15:50 | NUR ---
dc via ambulance mary aware
== END 2019-11-09 15:50 | disposition home health service (06) | DRG 917 ==
LOC: ED 14:34 → ICCU 14:51 → EDHOLD 14:51 → ICCU 15:35
PROVIDERS: Emergency Medicine; Hospitalist; Internal Medicine; ADMIT Internal Medicine
DX: T43.022A Poisoning by tetracyclic antidepressants, intentional self-harm, initial encounter (principal); G92 Toxic encephalopathy; F32.2 Major depressive disorder, single episode, severe without psychotic features; R45.851 Suicidal ideations; F19.10 Other psychoactive substance abuse, uncomplicated; R73.9 Hyperglycemia, unspecified; F32.9 Major depressive disorder, single episode, unspecified; Z91.5 Personal history of self-harm; Y92.89 Other specified places as the place of occurrence of the external cause

== ENCOUNTER 2019-12-22 14:20 | Inpatient (IN) | payer OTHER ==
[~2019-12-22] VITALS: Ht 170.1 cm; Wt 54.4 kg
[2019-12-22 14:28] VITALS: BP 119/66
[2019-12-22 14:58] LABS: BASO # 0.1 10*3/uL (0.0-0.1); BASO % 0.7 % (0.0-1.0); EOS # 0.2 10*3/uL (0.0-0.4); EOS % 1.9 % (1.0-4.0); HEMATOCRIT 45.9 % (42.0-52.0); LYMPH # 2.5 10*3/uL (1.3-4.4); LYMPH % 26.3 % (27.0-41.0); MEAN CELL VOLUME 89.5 fl (80.0-94.0); MEAN CORPUSCULAR HGB 31.2 pg (27.0-31.0); MEAN CORPUSCULAR HGB CONC 34.9 g/dl (33.0-37.0); MONO # 0.8 10*3/uL (0.1-1.0); MONO % 8.4 % (3.0-9.0); NEUT # 5.9 10*3/uL (2.3-7.9); NEUT % 62.4 % (47.0-73.0); PLATELET COUNT AUTOMATED 276 10*3/uL (130-400); RED BLOOD COUNT 5.13 10*6/uL (4.50-5.90); RED CELL DISTRI WIDTH 12.3 % (0-14.5); WHITE BLOOD COUNT 9.5 10*3/uL (4.8-10.8)
[2019-12-22 15:11] LABS: ACT PARTIAL THROMBO TIME 26.8 SECONDS (20.0-32.1)
[2019-12-22 15:16] LABS: ALKALINE PHOSPHATASE 62 U/L (45-117); BUN 15 mg/dl (7-24); CHLORIDE 104 mmol/L (98-107); POTASSIUM 3.7 mmol/L (3.5-5.1); SGOT/AST 21 IU/L (3-35); SGPT/ALT 32 U/L (12-78); SODIUM 137 mmol/L (136-145); TOTAL PROTEIN 7.7 gm/dL (6.4-8.2)
[2019-12-22 15:19] LABS: ETHYL ALCOHOL < 3.0 mg/dl (<3)
--- NOTE | 2019-12-22 15:22 | NUR ---
PT AT THE DESK ASKING TO BE DISCHARGED.
[2019-12-22 16:11] LABS: BILIRUBIN NEGATIVE (NEGATIVE); BLOOD NEGATIVE (NEGATIVE); CLARITY SL CLOUDY (CLEAR); COLOR YELLOW (YELLOW); GLUCOSE NEGATIVE (NEGATIVE); KETONE NEGATIVE (NEGATIVE); SPECIFIC GRAVITY 1.025 (1.005-1.030)
[2019-12-22 16:12] LABS: LEUKO ESTERASE NEGATIVE (NEGATIVE); NITRITE NEGATIVE (NEGATIVE); URINE AMPHETAMINES > 1000 (1000ng/ml); URINE BARBITURATES < 200 (200ng/ml); URINE BENZODIAZEPINES < 200 (200ng/ml); URINE CANNABINOIDS (THC) > 50 (50ng/ml); URINE COCAINE < 300 (300ng/ml); URINE METHADONE < 300 (300ng/ml); URINE OPIATES < 300 (300ng/ml); UROBILINOGEN 0.2 E.U./dl (0.2-1.0)
[2019-12-22 16:13] LABS: URINE PHENCYCLIDINE < 25 (25ng/ml)
--- NOTE | 2019-12-22 16:26 | NUR ---
KIRSTIN LAU CALLED AND WILL SEE PATIENT IN THE ER APPROXIMATELY 10 MINUTES. DELAY IN TAKING PT UPSTAIRS.
--- NOTE | 2019-12-22 16:30 | NUR ---
KIRSTIN LAU AWARE CONSULT WAS CANCELLED.
[2019-12-22 16:33] LABS: BACTERIA 1+; CALCIUM OXALATE CRYSTALS 2+; MUCOUS 2+
--- NOTE | 2019-12-22 16:43 | NUR ---
PATIENT MEETS [facility]. [facility] STAFF WILL PROVIDE PATIENT WITH REFERRAL OPTIONS FOR HIS AFTERCARE PLAN. PATIENT IS CURRENTLY UNDECIDED. RACHEL BARBER B.A. ALLOY WEIGHER
[2019-12-22 16:45] VITALS: BP 104/64
--- NOTE | 2019-12-22 17:56 | NUR ---
Time: 1644 A 29 year old MALE admitted to under services of GEGE BOURNE DO. Pt. arrived via WHEELCHAIR from ER. Chief complaint: POLYSUBSTANCE DEPENDENCE, EXCLUDING OPIODS. SUICIDAL IDEATIONS. ELENA DAVIS
--- NOTE | 2019-12-22 18:00 | NUR ---
PT STATED HE HAS THOUGHT ABOUT COMMITING SUICIDE AND HAS GOTTEN TO THE PNT OF TRYING THEN CHANGED HIS MIND. DURING ADMISSION INTERVIEW AND ASSESSMENT HE STATED THAT THE "SHADOW PEOPLE WANT TO KILL HIS FAMILY". NOTIFIED DR. LUNDY, SHE PUT IN CONSLUT FOR BHU. SANDRA FROM [facility] PHONEWD AND STATED THEY WILL SEE HIM TOMORRW.
[2019-12-22 20:00] VITALS: BP 99/55
--- NOTE | 2019-12-22 20:00 | NUR ---
24 HR chart check completed.
--- NOTE | 2019-12-22 21:00 | NUR ---
SLEEPING, AWAKENS EASILY. RESPIRATIONS EASY. LUNGS DIMINISHED, CLEAR. PULSE OX 99% RA. VSS. DENIES WISHES/DESIRES TO HARM SELF OR OTHERS AT PRESENT BUT HAS "HAD THEM". CALL LIGHT WITHIN REACH.
--- NOTE | 2019-12-22 21:00 | NUR ---
reina mckay contacted via cell regarding consult. will see patient
[2019-12-23] VITALS: BP 106/40
--- NOTE | 2019-12-23 00:30 | NUR ---
Patient resting. Responding to scheduled medications with fewer complaints of pain and anxiety.
--- NOTE | 2019-12-23 03:00 | NUR ---
Patient resting. Responding to scheduled medications with fewer complaints of pain and anxiety.
[2019-12-23 04:00] VITALS: BP 98/40
--- NOTE | 2019-12-23 06:00 | NUR ---
Patient SLEEPIGN. Responding to scheduled medications with fewer complaints of pain and anxiety.
[2019-12-23 08:00] VITALS: BP 111/73
--- NOTE | 2019-12-23 10:15 | NUR ---
PT ASLEEP BUT AROUSES EASILY. PT HAS FLAT AFFECT AND DOES NOT CONVERSATE WITH NURSE. AFTER RECIEVING PILLS PT WAS BACK TO SLEEP. RESPIRATIONS ARE EASY AND REGULAR. NO DISTRESS NOTED. BED IN LOWEST LOCKED POSITION AND CALL LIGHT WITHIN REACH.
--- NOTE | 2019-12-23 10:22 | NUR ---
met with client per consult, client is a&ox3 he reports that he is here to detox. he reports that he is depressed, but denies any suicidal ideation, client reports that now that he is here getting detoxed, he feels better, he said that he doesnt follow up anywhere but his parents are trying to get him into a program in [facility]. at this time he does not need any mental health intervention and his care can be substance abuse focused. he is not a present risk for self harm
[2019-12-23 12:00] VITALS: BP 113/52
--- NOTE | 2019-12-23 12:00 | NUR ---
PT ASLEEP BUT AROUSES EASILY. NO STATED COMPLAINTS. DENIES PAIN. STATES HE IS JUST VERY TIRED. RESPIRATIONS ARE EASY AND REGULAR. BED IN LOWEST LOCKED POSITION AND CALL LIGHT WITHIN REACH.
--- NOTE | 2019-12-23 15:18 | NUR ---
[facility] STAFF IN TO SEE PATIENT. PATIENT REPORTS THAT HE IS TIRED AND WANTS [facility] STAFF TO FOLLOW BACK UP LATER. RACHEL BARBER B.A. BOX SHOOK PATCHER
[2019-12-23 16:00] VITALS: BP 120/60
--- NOTE | 2019-12-23 17:40 | NUR ---
IN TO PT'S ROOM TO ADMINISTER ATIVAN TAPER. PT REFUSES AT THIS TIME. ATTEMPTED TO EDUCATE PATIENT ON IMPORTANCE OF MEDICATION, BUT HE KEPT HEAD COVERED WITH A BLANKET AND SHOOK HEAD NO WHEN OFFERED AGAIN. WILL CONTINUE TO MONITOR.
[2019-12-23 20:00] VITALS: BP 97/52
--- NOTE | 2019-12-23 20:00 | NUR ---
RESTING IN BED; VOICES NO C/O AT THIS TIME. CALL LIGHT WITHIN REACH.
--- NOTE | 2019-12-23 21:15 | NUR ---
PT. TOOK MEDICATIONS BUT WILL NOT MAKE EYE CONTACT. DOES NOT WANT TO SPEAK TO THIS RN OR CARRY ON A CONVERSATION. COOPERATIVE IN TAKING 21:00 MEDICATIONS. CALL LIGHT WITHIN REACH; WILL CONTINUE TO MONITOR.
[2019-12-24] VITALS: BP 93/49
--- NOTE | 2019-12-24 | NUR ---
REFUSED HIS MIDNIGHT ATIVAN.
--- NOTE | 2019-12-24 06:00 | NUR ---
PT. REFUSES ATIVAN.
[2019-12-24 08:00] VITALS: BP 104/56
--- NOTE | 2019-12-24 08:30 | NUR ---
0800 ASSESSMENT COMPLETE. PT DENIES C/O AT THIS TIME. CALL LIGHT WITHIN REACH. WILL CONTINUE TO MONITOR.
--- NOTE | 2019-12-24 10:04 | NUR ---
[facility] STAFF IN TO SEE PATIENT. PATIENT IS WANTING RESIDENTIAL TREATMENT. [facility] STAFF IS GOING TO SEND REFERRAL TO [facility]. RACHEL BARBER B.A. GENERATING PLANT SUPERINTENDENT
--- NOTE | 2019-12-24 11:00 | NUR ---
Spoke to Gwendolyn Miller regarding discharge planning. Per her previous assessment patient denied harm to himself. She will revisit in the morning as his 3rd day of detox will be tomorrow.
--- NOTE | 2019-12-24 14:21 | NUR ---
PATIENT HAS BEEN ACCEPTED TO [facility] IN [place] THROUGH [facility]. PATIENT IS SCHEDULED TO GO SUNDAY, December POST DISCHARGE. THE FACILITY IS ARRANGING THE FLIGHT FOR PATIENT. RACHEL BARBER B.A. FAMILY LAW PARALEGAL
[2019-12-24 16:00] VITALS: BP 102/56
--- NOTE | 2019-12-24 16:55 | NUR ---
PT SLEEPING. NO ACUTE DISTRESS NOTED AT THIS TIME. CALL LIGHT WITHIN REACH. WILL MONITOR.
--- NOTE | 2019-12-24 19:00 | NUR ---
ASSUMED CARE FOR THIS PT AT THIS TIME. PT RESTING QUIETLY IN BED. NO C/O WITHDRAWALS, NO S/S OF SUICIDAL IDEATIONS. CALL LIGHT IN REACH.
[2019-12-24 20:00] VITALS: BP 107/56
--- NOTE | 2019-12-24 23:02 | NUR ---
24 HR chart check completed.
[2019-12-25] VITALS: BP 114/66
--- NOTE | 2019-12-25 06:48 | NUR ---
Notified Gwendolyn Miller of patient's discharge plan to [facility] in [place] today and that the accepting facility is arranging the flight.
--- NOTE | 2019-12-25 07:00 | NUR ---
TOOK OVER CARE OF PT AT THIS TIME. PT RESTING IN BED. RESPIRATIONS EASY AND UNLABORED. NO S/S OF DISTRESS NOTED. NO COMPLAINTS VOICED. ASSESSMENT COMPLETE. CALL LIGHT IN REACH.
[2019-12-25 08:00] VITALS: BP 120/60
[2019-12-25] MEDS ORDERED: HYDROXYZINE HCL25 MG PO (08:15)
[2019-12-25] MEDS ORDERED: QUETIAPINE FUMA50 M1 PO (08:15)
--- NOTE | 2019-12-25 09:00 | NUR ---
Discharge instructions reviewed with patient/family. Patient receptive and verbalizes understanding. Follow-up care arranged. Written instructions given to patient/family. MAXI FAN
--- NOTE | 2019-12-25 09:55 | NUR ---
UPON ENTERING ROOM TO ASK ABOUT TIME THAT PT MOM IS TO PICK HIM UP FROM HOSPITAL. PT IS FOUND TO NOT BE IN ROOM. ALL BELONGINGS ARE GONE. NO IV SITE. NO HEART MONITOR WAS APPLIED TO PATIENT DURING ADMISSION. PT HAS ALL APPROPRIATE PAPERWORK AND HAS SIGNED ALL PAPERWORK. WILL NOTIFY [facility] THAT PT HAS LEFT FACILITY.
== END 2019-12-25 09:55 | disposition home or self-care (01) | DRG 897 ==
LOC: ED 14:20 → 4E 15:55 → EDHOLD 15:55 → 4E 16:12
PROVIDERS: Emergency Medicine; ADMIT Family Medicine
DX: F15.20 Other stimulant dependence, uncomplicated (principal); R45.851 Suicidal ideations; F33.3 Major depressive disorder, recurrent, severe with psychotic symptoms; E83.41 Hypermagnesemia; R73.9 Hyperglycemia, unspecified; R82.71 Bacteriuria; F17.210 Nicotine dependence, cigarettes, uncomplicated; Z71.6 Tobacco abuse counseling; Z91.5 Personal history of self-harm; Z81.1 Family history of alcohol abuse and dependence

== ENCOUNTER 2020-02-02 18:19 | Emergency (ER) | payer SELFPAY ==
[~2020-02-02] VITALS: Ht 170.1 cm; Wt 59.0 kg
[~2020-02-02 18:19] MED LIST changes: +HYDROXYZINE HCL25 MG PO; +QUETIAPINE FUMA50 M1 PO
[2020-02-02] MEDS ORDERED: IBUPROFEN600 MG PO (19:17)
== END 2020-02-02 19:45 | disposition home or self-care (01) ==
LOC: ED 18:19
DX: R51 Headache (principal); F32.9 Major depressive disorder, single episode, unspecified; F17.200 Nicotine dependence, unspecified, uncomplicated; Z79.899 Other long term (current) drug therapy

== ENCOUNTER 2020-02-24 18:36 | Emergency (ER) | payer SELFPAY ==
[~2020-02-24] VITALS: Ht 170.1 cm; Wt 54.4 kg
[~2020-02-24 18:36] MED LIST changes: +IBUPROFEN600 MG PO
[2020-02-25] MEDS ORDERED: PREDNISONE10 M1 PO (01:18)
[2020-02-25] MEDS ORDERED: BENADRYL ALLERG25 M5 PO (01:18)
[2020-02-25] MEDS ORDERED: PEPCID20 MG PO (01:18)
== END 2020-02-24 19:58 | disposition left against medical advice (07) ==
LOC: ED 18:36
DX: T78.3XXA Angioneurotic edema, initial encounter (principal); F17.200 Nicotine dependence, unspecified, uncomplicated; Z79.899 Other long term (current) drug therapy

== ENCOUNTER 2020-02-24 21:08 | Emergency (ER) | payer SELFPAY ==
[~2020-02-24] VITALS: Ht 170.1 cm; Wt 54.4 kg
[2020-02-25] MEDS ORDERED: PREDNISONE10 M1 PO (01:18)
[2020-02-25] MEDS ORDERED: BENADRYL ALLERG25 M5 PO (01:18)
[2020-02-25] MEDS ORDERED: PEPCID20 MG PO (01:18)
== END 2020-02-25 01:44 | disposition left against medical advice (07) ==
LOC: ED 21:08
DX: T78.3XXA Angioneurotic edema, initial encounter (principal); F32.9 Major depressive disorder, single episode, unspecified

== ENCOUNTER 2021-06-06 21:54 | Emergency (ER) | payer MEDICAID ==
[~2021-06-06] VITALS: Wt 59.0 kg
[~2021-06-06 21:54] MED LIST changes: +BENADRYL ALLERG25 M5 PO; +PEPCID20 MG PO; +PREDNISONE10 M1 PO
[2021-06-07] MEDS ORDERED: CEPHALEXIN500 M1 PO (00:24)
== END 2021-06-07 00:25 | disposition home or self-care (01) ==
LOC: ED 21:54
DX: L03.011 Cellulitis of right finger (principal)

== ENCOUNTER 2021-08-03 16:39 | Emergency (ER) | payer MEDICAID ==
[~2021-08-03] VITALS: Ht 170.1 cm; Wt 54.4 kg
[~2021-08-03 16:39] MED LIST changes: +CEPHALEXIN500 M1 PO
[2021-08-03 17:38] LABS: BASO # 0.1 10*3/uL (0.0-0.1); BASO % 0.9 % (0.0-1.0); EOS # 0.1 10*3/uL (0.0-0.4); EOS % 1.6 % (1.0-4.0); HEMATOCRIT 45.3 % (42.0-52.0); LYMPH # 2.4 10*3/uL (1.3-4.4); LYMPH % 27.2 % (27.0-41.0); MEAN CELL VOLUME 87.1 fl (80.0-94.0); MEAN CORPUSCULAR HGB 30.6 pg (27.0-31.0); MEAN CORPUSCULAR HGB CONC 35.1 g/dl (33.0-37.0); MEAN PLATELET VOLUME 8.4 fl (9.6-12.3); NEUT # 5.2 10*3/uL (2.3-7.9); NEUT % 59.1 % (47.0-73.0); PLATELET COUNT AUTOMATED 281 10*3/uL (130-400); RED CELL DISTRI WIDTH 12.2 % (0-14.5); WHITE BLOOD COUNT 8.8 10*3/uL (4.8-10.8)
[2021-08-03 17:53] LABS: ALBUMIN 4.2 gm/dl (3.1-4.5); BUN 23 mg/dl (7-24); CHLORIDE 105 mmol/L (98-107); CREATININE 0.89 mg/dL (0.70-1.30); LIPASE 96 U/L (73-393); POTASSIUM 3.5 mmol/L (3.5-5.1); SGOT/AST 14 IU/L (3-35); SGPT/ALT 24 U/L (12-78); SODIUM 138 mmol/L (136-145); TOTAL PROTEIN 7.7 gm/dL (6.4-8.2)
[2021-08-03 17:54] LABS: ALKALINE PHOSPHATASE 82 U/L (45-117)
[2021-08-03 19:07] LABS: BILIRUBIN Negative (Negative); BLOOD Negative (Negative); CLARITY Clear (Clear); COLOR Yellow (Yellow); GLUCOSE Negative (Negative); KETONE Negative (Negative); LEUKO ESTERASE Negative (Negative); NITRITE Negative (Negative); PH 6.5 (4.5-8.0); SPECIFIC GRAVITY <= 1.005 (1.001-1.030); UROBILINOGEN 0.2 E.U./dl (0.0-1.0)
[2021-08-03 19:20] LABS: BACTERIA TRACE; EPITHELIAL CELLS 0-2; RBC 0-2 rbc/hpf (0-2); WBC 0-2 wbc/hpf (0-5)
== END 2021-08-03 19:05 | disposition home or self-care (01) ==
LOC: ED 16:39
PROVIDERS: Internal Medicine; Physician Assistant
DX: R10.10 Upper abdominal pain, unspecified (principal); F17.200 Nicotine dependence, unspecified, uncomplicated

== ENCOUNTER 2021-08-20 08:26 | Emergency (ER) | payer MEDICAID ==
[~2021-08-20] VITALS: Wt 54.4 kg
[2021-08-20] MEDS ORDERED: NAPROXEN250 MG PO (10:13)
[2021-08-20] MEDS ORDERED: SEPTDS PO (10:13)
[2021-08-20] MEDS ORDERED: TYLENOL325 M1 PO (10:13)
== END 2021-08-20 12:34 | disposition home or self-care (01) ==
LOC: ED 08:26
DX: L02.611 Cutaneous abscess of right foot (principal); F32.9 Major depressive disorder, single episode, unspecified